=== PATIENT | female | born 1945 | race African-American/Black ===

== ENCOUNTER → 2016-06-30 | Outpatient (CLI) | payer MEDICARE, OTHER ==
[2014-08-28 21:30] VITALS: BP 115/63
[~2016-06-30] MED LIST: LISI1TAB3 PO
--- NOTE | 2016-06-30 15:16 | KCIC ---
PROCEDURE Thyroid sonogram. HISTORY Thyroid nodule. TECHNIQUE Sonographic imaging of the thyroid was performed. COMPARISON None. FINDINGS The right thyroid lobe measures 4.1 x 1.4 x 1.6 cm. The left thyroid lobe measures 3.9 x 0.9 x 0.9 cm. There is a complex predominately isoechoic nodule with small cystic component and increased vascularity within the right thyroid lobe measuring 2.4 x 1.3 x 1.3 cm. No additional thyroid lesion is seen. IMPRESSION 2.4 cm hypervascular right thyroid nodule. Sonographic guided fine-needle aspiration can be performed for definitive diagnosis. Electronically signed by: Juanita Curry (Jun 30, 2016 15:15:34)
== END | disposition home or self-care (01) ==
LOC: KCIC US 14:52
PROVIDERS: ATTEND Chiropractor
DX: E04.1 Nontoxic single thyroid nodule (principal)
CPT/HCPCS: 76536

== ENCOUNTER 2018-03-16 22:35 | Observation (INO) | payer MEDICARE, OTHER ==
[~2018-03-16] VITALS: Ht 162.6 cm; Wt 62.1 kg
[2018-03-16] MEDS ORDERED: IPRATRPIUM/ALBUTEROL 0.5/2.5MG 3 ML NEBU. NEB ONE (23:00)
[2018-03-16 23:08] LABS: BASO # 0.1 x10^3/uL (0.0-0.2); BASO % 1 % (0-3); EOS # 0.4 x10^3/uL (0.0-0.7); EOS % 5 % (0-3); HEMATOCRIT 37.2 % (36.0-47.0); HEMOGLOBIN 12.9 g/dL (12.0-15.5); LYMPH # 2.9 x10^3/uL (1.0-4.8); LYMPH % 36 % (24-48); MEAN CORPUSCULAR HEMOGLOBIN 31 pg (25-35); MEAN CORPUSCULAR HGB CONC 35 g/dL (31-37); MEAN CORPUSCULAR VOLUME 89 fL (79-100); MONO # 0.5 x10^3/uL (0.0-1.1); MONO % 6 % (0-9); NEUT # 4.3 x10^3uL (1.8-7.7); NEUT % 53 % (31-73); PLATELET COUNT 192 x10^3/uL (140-400); RED BLOOD COUNT 4.18 x10^6/uL (3.50-5.40); WHITE BLOOD COUNT 8.2 x10^3/uL (4.0-11.0)
[2018-03-16 23:27] LABS: CALCIUM 9.6 mg/dL (8.5-10.1); CREATININE 1.1 mg/dL (0.6-1.0); GFR 59.2; POTASSIUM 3.3 mmol/L (3.5-5.1)
[2018-03-16] MEDS ORDERED: fentaNYL PF VIAL 100 MCG/2 ML VIAL IV ONE (23:30)
[2018-03-16] MEDS ORDERED: ONDANSETRON PF 4 MG/2 ML VIAL. IV ONE (23:30)
[2018-03-16 23:32] LABS: ALBUMIN 3.9 g/dL (3.4-5.0); TOTAL BILIRUBIN 0.5 mg/dL (0.2-1.0); TOTAL PROTEIN 7.9 g/dL (6.4-8.2)
[2018-03-16] MEDS ORDERED: FAMOTIDINE 20 MG/2 ML VIAL IVP ONE (23:45)
[2018-03-17] MEDS ORDERED: fentaNYL PF VIAL 100 MCG/2 ML VIAL IV ONE
[2018-03-17] MEDS ORDERED: MORPHINE SULFATE 4 MG/ML VIAL. IV ONE (00:30)
[2018-03-17 00:31] LABS: BILIRUBIN,URINE NEGATIVE (NEG); CLARITY,URINE CLEAR; COLOR,URINE YELLOW; NITRITE,URINE NEGATIVE (NEG); PROTEIN,URINE NEGATIVE (NEG-TRACE)
--- NOTE | 2018-03-17 00:32 | RAD ---
Ultrasound the abdomen limited. HISTORY: Right upper quadrant pain Ultrasound was used to evaluate the liver, gallbladder and right upper quadrant. The pancreas was incompletely evaluated.. Pancreatic duct is mildly prominent measuring 3 mm. The IVC at the liver was normal. Liver was within normal limits in size and appearance. Common duct was normal measuring 4 mm. Gallbladder was contracted, gallstones were not definitely identified. Right kidney is 9.1 cm in length without hydronephrosis. IMPRESSION: 1. Limited evaluation of pancreas. 2. Pancreatic duct in the mid pancreas appeared prominent, CT or MRI could be of benefit. 3. No liver lesion noted. 4. Contracted gallbladder without gallstones. Electronically signed by: Goldy Shukla MD (03/17/2018 12:28 AM) [facility]
[2018-03-17] MEDS ORDERED: CONTRAST GIVEN. MC PRN (00:45)
[2018-03-17 00:53] LABS: BACTERIA,URINE FEW /HPF (0-FEW); SQUAMOUS EPITHELIAL CELL,UR FEW /LPF
[2018-03-17] MEDS ORDERED: IOHEXOL 300 MG/ML 100ML VIAL. IV ONE ×2 (01:00→03:30)
--- NOTE | 2018-03-17 01:20 | RAD ---
CT abdomen and pelvis with contrast. HISTORY: Right upper quadrant epigastric pain. CT scan of the abdomen and pelvis was done using 60 mL Omnipaque 300 contrast. Lung bases are clear. There is no effusion. Liver is normal in appearance. Gallbladder is contracted. There is no calcified gallstone. Spleen and adrenal glands are normal. A pancreatic lesion is not identified. Pancreatic duct upper normal in size. There is no mass or hydronephrosis in the kidneys. There is no adenopathy or ascites. Appendix is normal on the right side of the pelvis. Uterus and ovaries are normal. There is no bowel obstruction or ascites. There is mild degenerative change in the lumbar spine. IMPRESSION: 1. Contracted gallbladder without definite gallstones. 2. Common duct within normal limits. 3. Pancreatic duct upper normal or slightly prominent but without a definite pancreatic mass. 4. Normal appendix. 5. No abdominal or pelvic mass or other acute finding. RS Compliance Statement: One or more of the following individualized dose reduction techniques were utilized for this examination: 1. Automated exposure control 2. Adjustment of the mA and/or kV according to patient size 3. Use of iterative reconstruction technique Electronically signed by: Goldy Shukla MD (03/17/2018 1:16 AM) [facility]
--- NOTE | 2018-03-17 01:43 | RAD ---
AP chest. HISTORY: Short of air, chest pain AP view was taken of the chest. There is a possible pulmonary nodule on the right. Follow-up PA and lateral views would be of benefit. Heart is normal in size. There is no pleural effusion. There is mild apical scarring. IMPRESSION: 1. Possible pulmonary nodule on the right, follow-up recommended. 2. No acute infiltrates. Electronically signed by: Goldy Shukla MD (03/17/2018 1:38 AM) [facility]
[2018-03-17] MEDS ORDERED: LIDO:MAALOX 1:1 20 ML SINGLE DOSE. SWSW ONE (01:45)
[2018-03-17] MEDS ORDERED: IV NORMAL SALINE 1000ML BAG 1,000 ML IV ONE (02:00)
--- NOTE | 2018-03-17 03:07 | RAD ---
CT arteriogram of the chest. HISTORY: Chest pain through to back CT arteriogram of the chest was done using 60 mL Omnipaque 300 contrast. Sagittal and coronal MIP images were reconstructed. Pre and postcontrast images were reviewed reconstructed. There is no intramural hematoma at the aortic arch. Postcontrast images show the thyroid is homogeneous. There is no mediastinal adenopathy. There is no pleural effusion. 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 There is no aortic dissection. There is mild atelectasis in the medial left lung. There is no aortic aneurysm. There is mild biapical scarring. There is a granuloma in the right lung. There is a small focus of the atelectasis or infiltrate in the superior segment of the right lower lobe. This study is negative for evidence of a pulmonary embolus. CT abdomen was reviewed. There is atherosclerotic change in the aorta without an aortic aneurysm or dissection. IMPRESSION: 1. No thoracic aortic aneurysm or dissection. 2. Aberrant right subclavian 3. Mild focal atelectasis or infiltrate superior segment right lower lobe. 4. Mild biapical scarring. 5. Negative for a pulmonary embolus. Electronically signed by: Goldy Shukla MD (03/17/2018 3:03 AM) [facility]
[2018-03-17] MEDS ORDERED: ONDANSETRON PF 4 MG/2 ML VIAL. IV PRN (03:30)
[2018-03-17] MEDS ORDERED: fentaNYL PF VIAL 100 MCG/2 ML VIAL IV PRN (03:30)
[2018-03-17 03:53] VITALS: BP 159/65
[2018-03-17] MEDS: IV NORMAL SALINE 1000ML BAG 1,000 ML IV SCH ×2 (04:00→13:33)
[2018-03-17] MEDS ORDERED: ATOR20TA58 PO (05:14)
--- NOTE | 2018-03-17 06:18 | PHYS DOC ---
Past Medical History Past Medical History: High Cholesterol, Hypertension Past Surgical History: Tonsillectomy, Tubal ligation Alcohol Use: None Drug Use: None Adult General Chief Complaint Chief Complaint: GI PROBLEM HPI HPI Patient is a 72 year old -Bangladeshi female presents with acute onset chest pain described as epigastric radiating to back or shortness of breath starting 2 hours prior to ED arrival. No fever, cough, sore throat. No urinary frequency urgency, hematuria or flank pain. Denies history of CAD, DVT, PE. No history of AAA, no prior abdominal surgeries. No other acute symptoms or complaints. Patient's accompanied at bedside by spouse. [] Review of Systems Review of Systems ROS as per HPI All other systems were reviewed and found to be within normal limits, except as documented in this note. Current Medications Current Medications Current Medications Medications (Trade) Dose Ordered Sig/Grace Start Time Stop Time Status Last Admin Dose Admin Albuterol/ Ipratropium (Duoneb) 3 ml 1X ONCE 03/16/18 23:00 03/16/18 23:00 DC Famotidine (Pepcid Vial) 20 mg 1X ONCE 03/16/18 23:45 03/16/18 23:46 DC 03/16/18 23:42 20 MG Fentanyl Citrate (Fentanyl 2ml Vial) 75 mcg 1X ONCE 03/17/18 00:00 03/17/18 00:01 DC 03/17/18 00:20 75 MCG Info (CONTRAST GIVEN -- Rx MONITORING) 1 each PRN DAILY PRN 03/17/18 00:45 03/19/18 00:44 Iohexol (Omnipaque 300 Mg/ml) 60 ml 1X ONCE 03/17/18 01:00 03/17/18 01:01 DC 03/17/18 01:01 60 ML Morphine Sulfate (Morphine Sulfate) 4 mg 1X ONCE 03/17/18 00:30 03/17/18 00:31 DC Multi-Ingredient Mouthwash/Gargle (Gi Cocktail) 20 ml 1X ONCE 03/17/18 01:45 03/17/18 01:49 DC 03/17/18 01:48 20 ML Ondansetron HCl (Zofran) 4 mg 1X ONCE 03/16/18 23:30 03/16/18 23:31 DC 03/16/18 23:07 4 MG Sodium Chloride 1,000 ml @ 1,000 mls/hr 1X ONCE 03/17/18 02:00 03/17/18 02:59 DC 03/17/18 01:41 1,000 MLS/HR Allergies Allergies Allergies Coded Allergies Type Severity Reaction Last Updated Verified peanut Allergy Intermediate Rash 08/28/14 Yes tree nut Allergy Intermediate Rash 08/28/14 Yes Physical Exam Physical Exam Constitutional: Well developed, well nourished, no acute distress, non-toxic appearance. [] HENT: Normocephalic, atraumatic, bilateral external ears normal, oropharynx moist, no oral exudates, nose normal. [] Eyes: PERRLA, EOMI, conjunctiva normal, no discharge. [] Neck: Normal range of motion, no tenderness, supple, no stridor. [] Cardiovascular:Heart rate regular rhythm, no murmur [] Lungs & Thorax: Bilateral breath sounds clear to auscultation [] Abdomen: Bowel sounds normal, soft. [] Skin: Warm, dry, no erythema. [] Back: No tenderness. [] Extremities: No tenderness, no cyanosis, no clubbing, ROM intact, no edema. [] Neurologic: Alert and oriented X 3, normal motor function, normal sensory function, no focal deficits noted. [] Psychologic: Affect normal, judgement normal, mood normal. [] Current Patient Data Vital Signs Vital Signs Date Time Temp Pulse Resp B/P (MAP) Pulse Ox O2 Delivery O2 Flow Rate FiO2 03/17/18 01:47 71 167/95 (119) 99 Nasal Cannula 2.0 03/17/18 00:20 18 03/16/18 22:37 97.5 97.5 Lab Values Laboratory Tests Test 03/16/18 22:59 03/17/18 00:08 White Blood Count 8.2 x10^3/uL (4.0-11.0) Red Blood Count 4.18 x10^6/uL (3.50-5.40) Hemoglobin 12.9 g/dL (12.0-15.5) Hematocrit 37.2 % (36.0-47.0) Mean Corpuscular Volume 89 fL (79-100) Mean Corpuscular Hemoglobin 31 pg (25-35) Mean Corpuscular Hemoglobin Concent 35 g/dL (31-37) Red Cell Distribution Width 15.0 % (11.5-14.5) H Platelet Count 192 x10^3/uL (140-400) Neutrophils (%) (Auto) 53 % (31-73) Lymphocytes (%) (Auto) 36 % (24-48) Monocytes (%) (Auto) 6 % (0-9) Eosinophils (%) (Auto) 5 % (0-3) H Basophils (%) (Auto) 1 % (0-3) Neutrophils # (Auto) 4.3 x10^3uL (1.8-7.7) Lymphocytes # (Auto) 2.9 x10^3/uL (1.0-4.8) Monocytes # (Auto) 0.5 x10^3/uL (0.0-1.1) Eosinophils # (Auto) 0.4 x10^3/uL (0.0-0.7) Basophils # (Auto) 0.1 x10^3/uL (0.0-0.2) D-Dimer (Ruth) 1.31 ug/mlFEU (0.00-0.50) H Sodium Level 146 mmol/L (136-145) H Potassium Level 3.3 mmol/L (3.5-5.1) L Chloride Level 106 mmol/L (98-107) Carbon Dioxide Level 31 mmol/L (21-32) Anion Gap 9 (6-14) Blood Urea Nitrogen 15 mg/dL (7-20) Creatinine 1.1 mg/dL (0.6-1.0) H Estimated GFR (Cockcroft-Gault) 59.2 BUN/Creatinine Ratio 14 (6-20) Glucose Level 101 mg/dL (70-99) H Calcium Level 9.6 mg/dL (8.5-10.1) Total Bilirubin 0.5 mg/dL (0.2-1.0) Aspartate Amino Transferase (AST) 20 U/L (15-37) Alanine Aminotransferase (ALT) 19 U/L (14-59) Alkaline Phosphatase 75 U/L (46-116) Troponin I Quantitative 0.021 ng/mL (0.000-0.055) FN-Nbl-R-Type Natriuretic Peptide 196 pg/mL (0-124) H Total Protein 7.9 g/dL (6.4-8.2) Albumin 3.9 g/dL (3.4-5.0) Albumin/Globulin Ratio 1.0 (1.0-1.7) Lipase 300 U/L (73-393) Urine Collection Type Unknown Urine Color Yellow Urine Clarity Clear Urine pH 7.0 Urine Specific [place] 1.010 Urine Protein Negative mg/dL (NEG-TRACE) Urine Glucose (UA) Negative mg/dL (NEG) Urine Ketones (Stick) Negative mg/dL (NEG) Urine Blood Negative (NEG) Urine Nitrite Negative (NEG) Urine Bilirubin Negative (NEG) Urine Urobilinogen Dipstick 1.0 mg/dL (0.2 mg/dL) Urine Leukocyte Esterase Trace (NEG) Urine RBC 1-2 /HPF (0-2) Urine WBC 1-4 /HPF (0-4) Urine Squamous Epithelial Cells Few /LPF Urine Bacteria Few /HPF (0-FEW) Laboratory Tests 03/16/18 22:59 Laboratory Tests 03/16/18 22:59 EKG EKG [EKG: Reviewed] Radiology/Procedures Radiology/Procedures [XR chest: NAD CT A chest/abdomen/pelvis: No acute symptoms] Course & Med Decision Making Course & Med Decision Making Pertinent Labs and Imaging studies reviewed. (See chart for details) [Atypical chest pain, disproportionate to exam. CT angiogram chest abdomen and pelvis nonacute. Lab work likewise nondiagnostic. Patient require repeat doses of narcotic pain medications while in the emergency department. Will admit to the hospitalist service for further evaluation of chest pain.] Dragon Disclaimer Dragon Disclaimer This electronic medical record was generated, in whole or in part, using a voice recognition dictation system. Departure Departure Impression: Primary Impression: Chest pain Disposition: ADMITTED INPATIENT Condition: IMPROVED ATTILA CONNELL DO Mar 17, 2018 06:18
--- NOTE | 2018-03-17 06:21 | NUR ---
Patient admitted to room 262 from ER accompanied by ER nurse. Patient walked to bed from cart with steady gait. Monitor on with NSR noted. VSS. RA. c/o 5/10 mid, upper gastric sharp abd pain at 5/10 on scale. Patient is refusing pain medication at this time. Call light is within reach. Will monitor.
--- NOTE | 2018-03-17 06:57 | EKG ---
[facility] [address] [place] [address] Test Date: 2018-03-16 Test Time: 22:45:19 Pat Name: IZABELLA VIERA Department: Room: 262 1 Gender: F Potato Bucker: : 1945 Requested By: TANESHA AWAD Order Number: [id number] Reading MD: Mir Boland Measurements Intervals [place] Rate: 79 P: -1 SD: 124 QRS: 75 QRSD: 70 T: 48 QT: 410 QTc: 476 Interpretive Statements SINUS RHYTHM T ABNORMALITY IN INFERIOR LEADS PROLONGED QT ABNORMAL ECG Electronically Signed On 03-23-2018 9:21:23 FAMILY SUPPORT WORKER by Mir Boland
[2018-03-17 07:00] VITALS: BP 115/70
[2018-03-17] MEDS ORDERED: ACETAMINOPHEN 325 MG TABLET. PO PRN (09:00)
[2018-03-17] MEDS ORDERED: ELECTROLYTE (NON-ICU) PROTOCOL MC PRN (09:00)
[2018-03-17] MEDS ORDERED: PROCHLORPERAZINE 10 MG/2 ML VIAL. IV PRN (09:00)
[2018-03-17] MEDS ORDERED: HYDROcodone/APAP 5/325MG 1 TAB TABLET PO PRN (09:00)
[2018-03-17] MEDS ORDERED: ASPIRIN CHEWABLE 81 MG TABLET. PO ONE (09:00)
[2018-03-17] MEDS ORDERED: MAGNESIUM HYDROXIDE 2,400 MG/30 ML ORAL.SUSP. PO PRN (09:00)
[2018-03-17] MEDS ORDERED: MAG HYDROX/ALUMINUM HYD/SIMETH 30 ML ORAL.SUSP PO PRN (09:00)
[2018-03-17] MEDS ORDERED: POTASSIUM CHLORIDE 20 MEQ TABLET.ER. PO ONE (09:00)
--- NOTE | 2018-03-17 09:24 | PDOC2 ---
SHARI ANDREA ENGINE INSTALLER 03/17/18 0924: CARDIAC CONSULT DATE OF CONSULT Date of Consult DATE: 03/17/18 TIME: 09:13 REASON FOR CONSULT Reason for Consult: Chest pain REFERRING PHYSICIAN Referring Physician: Blanco SOURCE Source: Chart review, Patient HISTORY OF PRESENT ILLNESS HISTORY OF PRESENT ILLNESS This is a pleasant 72 yo female admitted for complains of epigastric pain more so than chest pain. Reports that she does 1 hour aerobics followed by 10 laps of swimming 3x weekly without difficulty. She does have asthma but this is controlled. Last night she ate corn, bratwurst, and potato then 1.5 hours later she had fullness in her epigastric region that radiated to her mid back. This was uncomfortable and took some tums but no help. She felt a little SOA at that time as she was not able to take a deep breath due to the epigastric discomfort. Reports no nausea no heartburn. Denies any palpitations or diaphoresis. She has not had any chest pain in the last several weeks and no changes to her activity tolerance. No prior hx of VTE, CAD, arrhythmias. No falls, injury or MVA. Denies any PUD and does not take any routine medications for GERD. Presently she has not further discomfort. PAST MEDICAL HISTORY Cardiovascular: HTN, Hyperlipidemia Pulmonary: Asthma CENTRAL NERVOUS SYSTEM: Other (No pertinent history) GI: No pertinent hx Heme/Onc: No pertinent hx Hepatobiliary: No pertinent hx Psych: No pertinent hx Musculoskeletal: Osteoarthritis Rheumatologic: No pertinent hx Infectious disease: No pertinent hx ENT: No pertinent hx Renal/: No pertinent hx Endocrine: No pertinent hx Dermatology: No pertinent hx PAST SURGICAL HISTORY Past Surgical History: Arthroscopy (right knee), Tubal Ligation, Tonsillectomy , Other (right knee surgery) FAMILY HISTORY Family History: Stroke (brother) SOCIAL HISTORY Smoke: Quit (remotely) ALCOHOL: occassional Drugs: Marijuana Lives: with Family (spouse) CURRENT MEDICATIONS CURRENT MEDICATIONS Current Medications Medications (Trade) Dose Ordered Sig/Grace Route PRN Reason Start Time Stop Time Status Last Admin Dose Admin Fentanyl Citrate (Fentanyl 2ml Vial) 50 mcg 1X ONCE IV 03/16/18 23:30 03/16/18 23:31 DC 03/16/18 23:11 Ondansetron HCl (Zofran) 4 mg 1X ONCE IV 03/16/18 23:30 03/16/18 23:31 DC 03/16/18 23:07 Famotidine (Pepcid Vial) 20 mg 1X ONCE IVP 03/16/18 23:45 03/16/18 23:46 DC 03/16/18 23:42 Fentanyl Citrate (Fentanyl 2ml Vial) 75 mcg 1X ONCE IV 03/17/18 00:00 03/17/18 00:01 DC 03/17/18 00:20 Iohexol (Omnipaque 300 Mg/ml) 60 ml 1X ONCE IV 03/17/18 01:00 03/17/18 01:01 DC 03/17/18 01:01 Sodium Chloride 1,000 ml @ 1,000 mls/hr 1X ONCE IV 03/17/18 02:00 03/17/18 02:59 DC 03/17/18 01:41 Multi-Ingredient Mouthwash/Gargle (Gi Cocktail) 20 ml 1X ONCE SWSW 03/17/18 01:45 03/17/18 01:49 DC 03/17/18 01:48 Sodium Chloride 1,000 ml @ 100 mls/hr Q10H IV 03/17/18 04:00 03/17/18 04:00 ALLERGIES ALLERGIES: Coded Allergies: peanut (Verified Allergy, Intermediate, Rash, 08/28/14) tree nut (Verified Allergy, Intermediate, Rash, 08/28/14) ROS Review of System 14 point ROS evaluated with pertinent positives noted per HPI PHYSICAL EXAM General: Alert, Oriented X3, Cooperative, No acute distress HEENT: Atraumatic, Mucous membr. moist/pink Lungs: Clear to auscultation, Normal air movement Heart: Regular rate (SR no rhythm ectopies) Abdomen: Soft, No tenderness Extremities: No cyanosis, No edema Skin: No breakdown, No significant lesion Neuro: Normal speech, Sensation intact Psych/Mental Status: Mental status NL, Mood NL MUSCULOSKELETAL: Osteoarthritic changes both hands VITALS VITALS Vital Signs Date Time Temp Pulse Resp B/P (MAP) Pulse Ox O2 Delivery O2 Flow Rate FiO2 03/17/18 07:00 98.4 70 18 115/70 (85) 98 Room Air 98.4 03/17/18 03:17 2.0 LABS Lab: Laboratory Tests Test 03/16/18 22:59 03/17/18 00:08 03/17/18 06:20 White Blood Count 8.2 x10^3/uL (4.0-11.0) Red Blood Count 4.18 x10^6/uL (3.50-5.40) Hemoglobin 12.9 g/dL (12.0-15.5) Hematocrit 37.2 % (36.0-47.0) Mean Corpuscular Volume 89 fL (79-100) Mean Corpuscular Hemoglobin 31 pg (25-35) Mean Corpuscular Hemoglobin Concent 35 g/dL (31-37) Red Cell Distribution Width 15.0 % (11.5-14.5) Platelet Count 192 x10^3/uL (140-400) Neutrophils (%) (Auto) 53 % (31-73) Lymphocytes (%) (Auto) 36 % (24-48) Monocytes (%) (Auto) 6 % (0-9) Eosinophils (%) (Auto) 5 % (0-3) Basophils (%) (Auto) 1 % (0-3) Neutrophils # (Auto) 4.3 x10^3uL (1.8-7.7) Lymphocytes # (Auto) 2.9 x10^3/uL (1.0-4.8) Monocytes # (Auto) 0.5 x10^3/uL (0.0-1.1) Eosinophils # (Auto) 0.4 x10^3/uL (0.0-0.7) Basophils # (Auto) 0.1 x10^3/uL (0.0-0.2) D-Dimer (Ruth) 1.31 ug/mlFEU (0.00-0.50) Sodium Level 146 mmol/L (136-145) Potassium Level 3.3 mmol/L (3.5-5.1) Chloride Level 106 mmol/L (98-107) Carbon Dioxide Level 31 mmol/L (21-32) Anion Gap 9 (6-14) Blood Urea Nitrogen 15 mg/dL (7-20) Creatinine 1.1 mg/dL (0.6-1.0) Estimated GFR (Cockcroft-Gault) 59.2 BUN/Creatinine Ratio 14 (6-20) Glucose Level 101 mg/dL (70-99) Calcium Level 9.6 mg/dL (8.5-10.1) Total Bilirubin 0.5 mg/dL (0.2-1.0) Aspartate Amino Transf (AST/SGOT) 20 U/L (15-37) Alanine Aminotransferase (ALT/SGPT) 19 U/L (14-59) Alkaline Phosphatase 75 U/L (46-116) Troponin I Quantitative 0.021 ng/mL (0.000-0.055) 0.028 ng/mL (0.000-0.055) BR-[id number]-[id number]-Type Natriuretic Peptide 196 pg/mL (0-124) Total Protein 7.9 g/dL (6.4-8.2) Albumin 3.9 g/dL (3.4-5.0) Albumin/Globulin Ratio 1.0 (1.0-1.7) Lipase 300 U/L (73-393) Urine Collection Type Unknown Urine Color Yellow Urine Clarity Clear Urine pH 7.0 Urine Specific [place] 1.010 Urine Protein Negative mg/dL (NEG-TRACE) Urine Glucose (UA) Negative mg/dL (NEG) Urine Ketones (Stick) Negative mg/dL (NEG) Urine Blood Negative (NEG) Urine Nitrite Negative (NEG) Urine Bilirubin Negative (NEG) Urine Urobilinogen Dipstick 1.0 mg/dL (0.2 mg/dL) Urine Leukocyte Esterase Trace (NEG) Urine RBC 1-2 /HPF (0-2) Urine WBC 1-4 /HPF (0-4) Urine Squamous Epithelial Cells Few /LPF Urine Bacteria Few /HPF (0-FEW) ASSESSMENT/PLAN ASSESSMENT/PLAN 1. Atypical Chest pain: more on epigastric region. Suspect dyspepsia, doubt ACS 2. HTN: labile episodes 3. HLP 4. Hypokalemia 5. Marijuana use 6. Hx of asthma: controlled Recommendations TTE, lipids, repeat EKG Restart BP meds. Replace K. Potential DC this afternoon Start on PPI. Discouraged marijuana use REYNA BAGN MD 03/17/187: SHARI ANDREA APRN Mar 17, 2018 09:24 REYNA BANG MD Mar 17, 2018 19:27
[2018-03-17] MEDS ORDERED: hydroCHLOROthiazide 12.5 MG CAPSULE PO SCH (09:30)
[2018-03-17] MEDS ORDERED: LISINOPRIL 10 MG TABLET PO SCH (09:30)
[2018-03-17] MEDS ORDERED: ASPIRIN ENTERIC COATED 81 MG TABLET.DR. PO SCH (09:30)
[2018-03-17 09:36] LABS: CALCIUM 8.7 mg/dL (8.5-10.1); GFR 66.1; MAGNESIUM 1.7 mg/dL (1.8-2.4); POTASSIUM 3.8 mmol/L (3.5-5.1)
[2018-03-17] MEDS ORDERED: PANTOPRAZOLE 40 MG TABLET.DR. PO SCH (10:15)
[2018-03-17 11:00] VITALS: BP 154/63
[2018-03-17] MEDS ORDERED: MAGNESIUM SULFATE 2GM 50 ML IV ONE (11:00)
--- NOTE | 2018-03-17 11:20 | EKG ---
[facility] [address] [place] [address] Test Date: 2018-03-17 Test Time: 11:14:45 Pat Name: IZABELLA VIERA Department: Room: 262 1 Gender: F Corporate Representative: [facility] : 1945 Requested By: SHARI ANDREA Order Number: [id number] Reading MD: Mir Boland Measurements Intervals [place] Rate: 59 P: 63 ND: 184 QRS: 82 QRSD: 66 T: 71 QT: 434 QTc: 430 Interpretive Statements SINUS RHYTHM n Electronically Signed On 03-23-2018 9:23:06 SECONDARY ENGLISH TEACHER by Mir Boland
--- NOTE | 2018-03-17 11:44 | PDOC1 ---
History and Physical Date of Admission Date of Admission DATE: 03/17/18 TIME: 11:37 Identification/Chief Complaint Chief Complaint chest pain Source Source: Patient History of Present Illness History of Present Illness 72 yo female admitted for complains of epigastric pain that started yesterday 1 hr after eating. patient active and swims 3x/week Last night she ate corn, bratwurst, and potato then 1.5 hours later she had fullness in her epigastric region that radiated to her mid back. patient patient also endorsed SOB on inspiration. no hx of GERD or PUD . Patient Denies any palpitations or diaphoresis. No prior hx of VTE, CAD, arrhythmias. no mechanical fall . patient admitted for ACS rule out Past Medical History Cardiovascular: HTN, Hyperlipidemia Pulmonary: Asthma CENTRAL NERVOUS SYSTEM: Other (No pertinent history) GI: No pertinent hx Heme/Onc: No pertinent hx Hepatobiliary: No pertinent hx Psych: No pertinent hx Musculoskeletal: Osteoarthritis Rheumatologic: No pertinent hx Infectious disease: No pertinent hx ENT: No pertinent hx Renal/: No pertinent hx Endocrine: No pertinent hx Dermatology: No pertinent hx Past Surgical History Past Surgical History: Arthroscopy (right knee), Tubal Ligation, Tonsillectomy , Other (right knee surgery) Family History Family History: Stroke (brother) Social History Smoke: Quit (remotely) ALCOHOL: occassional Drugs: Marijuana Current Problem List Problem List Problems Medical Problems: (1) Chest pain Status: Acute Current Medications Current Medications Current Medications Albuterol/ Ipratropium (Duoneb) 3 ml 1X ONCE NEB ; Start 03/16/18 at 23:00; Stop 03/16/18 at 23:00; Status DC Fentanyl Citrate (Fentanyl 2ml Vial) 50 mcg 1X ONCE IV Last administered on 03/16/18at 23:11; Start 03/16/18 at 23:30; Stop 03/16/18 at 23:31; Status DC Ondansetron HCl (Zofran) 4 mg 1X ONCE IV Last administered on 03/16/18at 23:07; Start 03/16/18 at 23:30; Stop 03/16/18 at 23:31; Status DC Famotidine (Pepcid Vial) 20 mg 1X ONCE IVP Last administered on 03/16/18at 23:42 ; Start 03/16/18 at 23:45; Stop 03/16/18 at 23:46; Status DC Fentanyl Citrate (Fentanyl 2ml Vial) 75 mcg 1X ONCE IV Last administered on 03/17/18at 00:20; Start 03/17/18 at 00:00; Stop 03/17/18 at 00:01; Status DC Morphine Sulfate (Morphine Sulfate) 4 mg 1X ONCE IV ; Start 03/17/18 at 00:30; Stop 03/17/18 at 00:31; Status DC Iohexol (Omnipaque 300 Mg/ml) 60 ml 1X ONCE IV Last administered on 03/17/18at 01:01; Start 03/17/18 at 01:00; Stop 03/17/18 at 01:01; Status DC Info (CONTRAST GIVEN -- Rx MONITORING) 1 each PRN DAILY PRN MC SEE COMMENTS; Start 03/17/18 at 00:45; Stop 03/19/18 at 00:44 Sodium Chloride 1,000 ml @ 1,000 mls/hr 1X ONCE IV Last administered on at 01:41; Start 03/17/18 at 02:00; Stop 03/17/18 at 02:59; Status DC Multi-Ingredient Mouthwash/Gargle (Gi Cocktail) 20 ml 1X ONCE SWSW Last administered on 03/17/18at 01:48; Start 03/17/18 at 01:45; Stop 03/17/18 at 01:49; Status DC Iohexol (Omnipaque 300 Mg/ml) 60 ml 1X ONCE IV ; Start 03/17/18 at 03:30; Stop 03/17/18 at 03:31; Status DC Ondansetron HCl (Zofran) 4 mg PRN Q8HRS PRN IV NAUSEA/VOMITING 1ST CHOICE; Start 03/17/18 at 03:30; Stop 03/18/18 at 03:29 Fentanyl Citrate (Fentanyl 2ml Vial) 50 mcg PRN Q2HR PRN IV SEVERE PAIN; Start 03/17/18 at 03:30; Stop 03/18/18 at 03:29 Sodium Chloride 1,000 ml @ 100 mls/hr Q10H IV Last administered on 03/17/18at 04 :00; Start 03/17/18 at 04:00 Prochlorperazine Edisylate (Compazine) 10 mg PRN Q6HRS PRN IV NAUSEA/VOMITING; Start 03/17/18 at 09:00 Al Hydroxide/Mg Hydroxide (Mylanta Plus Xs) 30 ml PRN Q3HRS PRN PO HEARTBURN / GAS; Start 03/17/18 at 09:00 Info (Non-Icu Electrolyte Protocol) 1 ea PRN DAILY PRN MC SEE COMMENTS; Start 03/17/18 at 09:00 Acetaminophen/ Hydrocodone Bitart (Lortab 5/325) 1 tab PRN Q4HRS PRN PO MILD PAIN; Start 03/17/18 at 09:00 Acetaminophen (Tylenol) 650 mg PRN Q6HRS PRN PO Headaches, Temp > 101.5F; Start 03/17/18 at 09:00 Magnesium Hydroxide (Milk Of Magnesia) 2,400 mg PRN Q12HR PRN PO CONSTIPATION; Start 03/17/18 at 09:00 Atorvastatin Calcium (Lipitor) 20 mg QHS PO ; Start 03/17/18 at 21:00 Lisinopril (Prinivil) 10 mg DAILY PO ; Start 03/17/18 at 09:30 Potassium Chloride (Klor-Con) 40 meq 1X ONCE PO ; Start 03/17/18 at 09:00; Stop 03/17/18 at 09:04; Status DC Aspirin (Ecotrin) 81 mg DAILYWBKFT PO ; Start 03/17/18 at 09:30; Stop 03/17/18 at 09:30; Status DC Hydrochlorothiazide (Microzide) 12.5 mg DAILY PO ; Start 03/17/18 at 09:30 Aspirin (Children'S Aspirin) 81 mg 1X ONCE PO ; Start 03/17/18 at 09:00; Stop at 09:08; Status DC Aspirin (Ecotrin) 81 mg DAILYWBKFT PO ; Start 03/18/18 at 08:00 Pantoprazole Sodium (Protonix) 40 mg DAILYAC PO Last administered on 03/17/18at 10:53; Start 03/17/18 at 10:15 Magnesium Sulfate 50 ml @ 25 mls/hr 1X ONCE IV Last administered on 03/17/18at 11:21; Start 03/17/18 at 11:00; Stop 03/17/18 at 12:59 Active Scripts Active Reported Atorvastatin Calcium 20 Mg Tablet 1 Tab PO DAILY Lisinopril-Hctz 10-12.5 Mg Tab (Lisinopril/Hydrochlorothiazide) 1 Each Tablet 1 Tab PO DAILY Allergies Allergies: Coded Allergies: peanut (Verified Allergy, Intermediate, Rash, 08/28/14) tree nut (Verified Allergy, Intermediate, Rash, 08/28/14) ROS Review of System CONSTITUTIONAL: No fever or chills EYES: No recent changes SKIN: No rash or itching CARDIOVASCULAR: No chest pain, syncope, palpitations, or edema RESPIRATORY: No SOB or cough GASTROINTESTINAL: No nausea, vomiting or abdominal pain NEUROLOGICAL: No headaches or weakness ENDOCRINE: No cold or heat intolerance GENITOURINARY: No urgency or frequency of urination MUSCULOSKELETAL: No back pain or joint pain LYMPHATICS: No enlarged lymph nodes PSYCHIATRIC: No anxiety or depression Physical Exam Physical Exam GENERAL: No apparent distress. Alert and oriented. HEENT: Head normocephalic, atraumatic. NECK: Supple LUNGS: Clear to auscultation. HEART: RRR, S1, S2 present, pulses intact ABDOMEN: Soft, positive bowel sounds. EXTREMITIES: No cyanosis or edema. NEUROLOGIC: Normal speech, normal tone PSYCHIATRIC: Normal affect, normal mood. SKIN: No ulceration. Vitals Vitals Vital Signs Date Time Temp Pulse Resp B/P (MAP) Pulse Ox O2 Delivery O2 Flow Rate FiO2 03/17/18 11:00 97.3 63 18 154/63 (93) 98 Room Air 97.3 03/17/18 03:17 2.0 Labs Labs Laboratory Tests Test 03/16/18 22:59 03/17/18 00:08 03/17/18 06:20 03/17/18 09:28 White Blood Count 8.2 x10^3/uL (4.0-11.0) Red Blood Count 4.18 x10^6/uL (3.50-5.40) Hemoglobin 12.9 g/dL (12.0-15.5) Hematocrit 37.2 % (36.0-47.0) Mean Corpuscular Volume 89 fL (79-100) Mean Corpuscular Hemoglobin 31 pg (25-35) Mean Corpuscular Hemoglobin Concent 35 g/dL (31-37) Red Cell Distribution Width 15.0 % (11.5-14.5) Platelet Count 192 x10^3/uL (140-400) Neutrophils (%) (Auto) 53 % (31-73) Lymphocytes (%) (Auto) 36 % (24-48) Monocytes (%) (Auto) 6 % (0-9) Eosinophils (%) (Auto) 5 % (0-3) Basophils (%) (Auto) 1 % (0-3) Neutrophils # (Auto) 4.3 x10^3uL (1.8-7.7) Lymphocytes # (Auto) 2.9 x10^3/uL (1.0-4.8) Monocytes # (Auto) 0.5 x10^3/uL (0.0-1.1) Eosinophils # (Auto) 0.4 x10^3/uL (0.0-0.7) Basophils # (Auto) 0.1 x10^3/uL (0.0-0.2) D-Dimer (Ruth) 1.31 ug/mlFEU (0.00-0.50) Sodium Level 146 mmol/L (136-145) 145 mmol/L (136-145) Potassium Level 3.3 mmol/L (3.5-5.1) 3.8 mmol/L (3.5-5.1) Chloride Level 106 mmol/L (98-107) 108 mmol/L (98-107) Carbon Dioxide Level 31 mmol/L (21-32) 27 mmol/L (21-32) Anion Gap 9 (6-14) 10 (6-14) Blood Urea Nitrogen 15 mg/dL (7-20) 14 mg/dL (7-20) Creatinine 1.1 mg/dL (0.6-1.0) 1.0 mg/dL (0.6-1.0) Estimated GFR (Cockcroft-Gault) 59.2 66.1 BUN/Creatinine Ratio 14 (6-20) Glucose Level 101 mg/dL (70-99) 100 mg/dL (70-99) Calcium Level 9.6 mg/dL (8.5-10.1) 8.7 mg/dL (8.5-10.1) Total Bilirubin 0.5 mg/dL (0.2-1.0) Aspartate Amino Transf (AST/SGOT) 20 U/L (15-37) Alanine Aminotransferase (ALT/SGPT) 19 U/L (14-59) Alkaline Phosphatase 75 U/L (46-116) Troponin I Quantitative 0.021 ng/mL (0.000-0.055) 0.028 ng/mL (0.000-0.055) 0.029 ng/mL (0.000-0.055) GM-Kmv-K-Type Natriuretic Peptide 196 pg/mL (0-124) Total Protein 7.9 g/dL (6.4-8.2) Albumin 3.9 g/dL (3.4-5.0) Albumin/Globulin Ratio 1.0 (1.0-1.7) Lipase 300 U/L (73-393) Urine Collection Type Unknown Urine Color Yellow Urine Clarity Clear Urine pH 7.0 Urine Specific [place] 1.010 Urine Protein Negative mg/dL (NEG-TRACE) Urine Glucose (UA) Negative mg/dL (NEG) Urine Ketones (Stick) Negative mg/dL (NEG) Urine Blood Negative (NEG) Urine Nitrite Negative (NEG) Urine Bilirubin Negative (NEG) Urine Urobilinogen Dipstick 1.0 mg/dL (0.2 mg/dL) Urine Leukocyte Esterase Trace (NEG) Urine RBC 1-2 /HPF (0-2) Urine WBC 1-4 /HPF (0-4) Urine Squamous Epithelial Cells Few /LPF Urine Bacteria Few /HPF (0-FEW) Magnesium Level 1.7 mg/dL (1.8-2.4) Triglycerides Level 51 mg/dL (0-150) Cholesterol Level 135 mg/dL (0-200) LDL Cholesterol, Calculated 58 mg/dL (0-100) VLDL Cholesterol, Calculated 10 mg/dL (0-40) Non-HDL Cholesterol Calculated 68 mg/dL (0-129) HDL Cholesterol 67 mg/dL (40-60) Cholesterol/HDL Ratio 2.0 Laboratory Tests Test 03/16/18 22:59 03/17/18 00:08 03/17/18 06:20 03/17/18 09:28 White Blood Count 8.2 x10^3/uL (4.0-11.0) Red Blood Count 4.18 x10^6/uL (3.50-5.40) Hemoglobin 12.9 g/dL (12.0-15.5) Hematocrit 37.2 % (36.0-47.0) Mean Corpuscular Volume 89 fL (79-100) Mean Corpuscular Hemoglobin 31 pg (25-35) Mean Corpuscular Hemoglobin Concent 35 g/dL (31-37) Red Cell Distribution Width 15.0 % (11.5-14.5) Platelet Count 192 x10^3/uL (140-400) Neutrophils (%) (Auto) 53 % (31-73) Lymphocytes (%) (Auto) 36 % (24-48) Monocytes (%) (Auto) 6 % (0-9) Eosinophils (%) (Auto) 5 % (0-3) Basophils (%) (Auto) 1 % (0-3) Neutrophils # (Auto) 4.3 x10^3uL (1.8-7.7) Lymphocytes # (Auto) 2.9 x10^3/uL (1.0-4.8) Monocytes # (Auto) 0.5 x10^3/uL (0.0-1.1) Eosinophils # (Auto) 0.4 x10^3/uL (0.0-0.7) Basophils # (Auto) 0.1 x10^3/uL (0.0-0.2) D-Dimer (Ruth) 1.31 ug/mlFEU (0.00-0.50) Sodium Level 146 mmol/L (136-145) 145 mmol/L (136-145) Potassium Level 3.3 mmol/L (3.5-5.1) 3.8 mmol/L (3.5-5.1) Chloride Level 106 mmol/L (98-107) 108 mmol/L (98-107) Carbon Dioxide Level 31 mmol/L (21-32) 27 mmol/L (21-32) Anion Gap 9 (6-14) 10 (6-14) Blood Urea Nitrogen 15 mg/dL (7-20) 14 mg/dL (7-20) Creatinine 1.1 mg/dL (0.6-1.0) 1.0 mg/dL (0.6-1.0) Estimated GFR (Cockcroft-Gault) 59.2 66.1 BUN/Creatinine Ratio 14 (6-20) Glucose Level 101 mg/dL (70-99) 100 mg/dL (70-99) Calcium Level 9.6 mg/dL (8.5-10.1) 8.7 mg/dL (8.5-10.1) Total Bilirubin 0.5 mg/dL (0.2-1.0) Aspartate Amino Transf (AST/SGOT) 20 U/L (15-37) Alanine Aminotransferase (ALT/SGPT) 19 U/L (14-59) Alkaline Phosphatase 75 U/L (46-116) Troponin I Quantitative 0.021 ng/mL (0.000-0.055) 0.028 ng/mL (0.000-0.055) 0.029 ng/mL (0.000-0.055) FE-Uom-I-Type Natriuretic Peptide 196 pg/mL (0-124) Total Protein 7.9 g/dL (6.4-8.2) Albumin 3.9 g/dL (3.4-5.0) Albumin/Globulin Ratio 1.0 (1.0-1.7) Lipase 300 U/L (73-393) Urine Collection Type Unknown Urine Color Yellow Urine Clarity Clear Urine pH 7.0 Urine Specific [place] 1.010 Urine Protein Negative mg/dL (NEG-TRACE) Urine Glucose (UA) Negative mg/dL (NEG) Urine Ketones (Stick) Negative mg/dL (NEG) Urine Blood Negative (NEG) Urine Nitrite Negative (NEG) Urine Bilirubin Negative (NEG) Urine Urobilinogen Dipstick 1.0 mg/dL (0.2 mg/dL) Urine Leukocyte Esterase Trace (NEG) Urine RBC 1-2 /HPF (0-2) Urine WBC 1-4 /HPF (0-4) Urine Squamous Epithelial Cells Few /LPF Urine Bacteria Few /HPF (0-FEW) Magnesium Level 1.7 mg/dL (1.8-2.4) Triglycerides Level 51 mg/dL (0-150) Cholesterol Level 135 mg/dL (0-200) LDL Cholesterol, Calculated 58 mg/dL (0-100) VLDL Cholesterol, Calculated 10 mg/dL (0-40) Non-HDL Cholesterol Calculated 68 mg/dL (0-129) HDL Cholesterol 67 mg/dL (40-60) Cholesterol/HDL Ratio 2.0 VTE Prophylaxis Ordered VTE Prophylaxis Devices: No VTE Pharmacological Prophylaxi: No Assessment/Plan Assessment/Plan ASSESSMENT 1. Atypical Chest pain: more on epigastric region. Suspect dyspepsia, doubt ACS 2. HTN: 3. HLP 4. Hypokalemia 5. Marijuana use 6. Hx of asthma: controlled Plan: TTE pending ASA given Restarted BP meds. Replaced K. start oral PPI. dc on protonix Discouraged marijuana use dc today if tte GAGAN Edmonds MD Mar 17, 2018 11:44
--- NOTE | 2018-03-17 14:07 | NUR ---
SS following for discharge planning. SS reviewed pt's chart. Pt is from home with spouse and is currently on room air. No PT/OT evaluations at this time and no discharge needs noted. SS will continue to follow for pending discharge needs.
[2018-03-17 15:00] VITALS: BP 147/75
--- NOTE | 2018-03-17 15:39 | CARD ---
MR#: [id number] Date of Study: 03/17/2018 Ordering Physician: SHARI ANDREA, Referring Physician: TANESHA AWAD Tech: Alayna Cisse GEOVANY APPROVED REPORT EXAM: Two-dimensional and M-mode echocardiogram with Doppler and color Doppler. Other Information Quality : Good INDICATION Chest Pain 2D DIMENSIONS RVDd2.5 (2.9-3.5cm)Left Atrium(2D)3.2 (1.6-4.0cm) IVSd0.7 (0.7-1.1cm)Aortic Root(2D)2.8 (2.0-3.7cm) LVDd4.1 (3.9-5.9cm)LVOT Diameter2.0 (1.8-2.4cm) PWd0.8 (0.7-1.1cm)LVDs2.2 (2.5-4.0cm) FS (%) 30.0 %SV56.6 ml LVEF(%)60.0 (>50%) Aortic Valve AoV Peak Fredi.158.5cm/sAoV VTI33.4cm AO Peak GR.10.1mmHgLVOT Peak Fredi.112.0cm/s AO Mean GR.5mmHgAVA (VMAX)2.18cm2 EMILEE (VTI)2.40cm2 Mitral Valve MV E Meqvmktt269.2cm/sMV DECEL RHXO338gk MV A Slqelbtl52.6cm/sE/A Ratio1.3 Tricuspid Valve TR P. Ouzpvnhv787wu/sRAP [id number] TR Peak Gr.55vwDwTNIR31faEt Pulmonary Vein S1 Yrevzooq12.5cm/sD2 Kiqgzhxv43.9cm/s LEFT VENTRICLE The left ventricle is normal size. There is normal left ventricular wall thickness. The left ventricu lar systolic function is normal. The Ejection Fraction is 60-65%. There is normal LV segmental wall m otion. RIGHT VENTRICLE The right ventricle is normal size. The right ventricular systolic function is normal. ATRIA The left atrium size is normal. The right atrium size is normal. The interatrial septum is intact wit h no evidence for an atrial septal defect or patent foramen ovale as noted on 2-D or Doppler imaging. AORTIC VALVE The aortic valve is calcified but opens well. Doppler and Color Flow revealed no significant aortic r egurgitation. There is no significant aortic valvular stenosis. MITRAL VALVE The mitral valve is calcified but opens well. There is no evidence of mitral valve prolapse. There is no mitral valve stenosis. Doppler and Color-flow revealed trace to mild mitral regurgitation. TRICUSPID VALVE The tricuspid valve is normal in structure and function. Doppler and Color Flow revealed mild tricusp id regurgitation. There is moderate pulmonary hypertension. The PA pressure was estimated at 46 mmHg. There is no tricuspid valve stenosis. PULMONIC VALVE The pulmonary valve is normal in structure and function. Doppler and Color Flow revealed mild pulmoni c valvular regurgitation. There is no pulmonic valvular stenosis. GREAT VESSELS The aortic root is normal in size. The ascending aorta is normal in size. The IVC is dilated and kathleen apses >50% with inspiration. PERICARDIAL EFFUSION There is no evidence of significant pericardial effusion. Critical Notification Critical Value: No <Conclusion> The left ventricular systolic function is normal. The Ejection Fraction is 60-65%. There is normal LV segmental wall motion. Trace to mild mitral regurgitation. Mild tricuspid regurgitation. There is moderate pulmonary hypertension. The PA pressure was estimated at 46 mmHg. There is no evidence of significant pericardial effusion. Signed by : Mir Boland, Electronically Approved : 03/17/2018 15:37:52
[2018-03-17] MEDS ORDERED: Pantoprazole PO (16:07)
--- NOTE | 2018-03-17 16:13 | PDOC3 ---
Discharge Summary Visit Information Date of Admission: Mar 17, 2018 Date of Discharge: Mar 17, 2018 Final Diagnosis Problems Medical Problems: (1) Chest pain Status: Acute Brief Hospital Course Allergies Allergies Coded Allergies Type Severity Reaction Last Updated Verified peanut Allergy Intermediate Rash 08/28/14 Yes tree nut Allergy Intermediate Rash 08/28/14 Yes Vital Signs Vital Signs Date Time Temp Pulse Resp B/P (MAP) Pulse Ox O2 Delivery O2 Flow Rate FiO2 03/17/18 15:00 97.9 68 18 147/75 (99) 99 Room Air 97.9 03/17/18 03:17 2.0 Lab Results Laboratory Tests Test 03/16/18 22:59 03/17/18 00:08 03/17/18 06:20 03/17/18 09:28 White Blood Count 8.2 x10^3/uL (4.0-11.0) Red Blood Count 4.18 x10^6/uL (3.50-5.40) Hemoglobin 12.9 g/dL (12.0-15.5) Hematocrit 37.2 % (36.0-47.0) Mean Corpuscular Volume 89 fL (79-100) Mean Corpuscular Hemoglobin 31 pg (25-35) Mean Corpuscular Hemoglobin Concent 35 g/dL (31-37) Red Cell Distribution Width 15.0 % (11.5-14.5) Platelet Count 192 x10^3/uL (140-400) Neutrophils (%) (Auto) 53 % (31-73) Lymphocytes (%) (Auto) 36 % (24-48) Monocytes (%) (Auto) 6 % (0-9) Eosinophils (%) (Auto) 5 % (0-3) Basophils (%) (Auto) 1 % (0-3) Neutrophils # (Auto) 4.3 x10^3uL (1.8-7.7) Lymphocytes # (Auto) 2.9 x10^3/uL (1.0-4.8) Monocytes # (Auto) 0.5 x10^3/uL (0.0-1.1) Eosinophils # (Auto) 0.4 x10^3/uL (0.0-0.7) Basophils # (Auto) 0.1 x10^3/uL (0.0-0.2) D-Dimer (Ruth) 1.31 ug/mlFEU (0.00-0.50) Sodium Level 146 mmol/L (136-145) 145 mmol/L (136-145) Potassium Level 3.3 mmol/L (3.5-5.1) 3.8 mmol/L (3.5-5.1) Chloride Level 106 mmol/L (98-107) 108 mmol/L (98-107) Carbon Dioxide Level 31 mmol/L (21-32) 27 mmol/L (21-32) Anion Gap 9 (6-14) 10 (6-14) Blood Urea Nitrogen 15 mg/dL (7-20) 14 mg/dL (7-20) Creatinine 1.1 mg/dL (0.6-1.0) 1.0 mg/dL (0.6-1.0) Estimated GFR (Cockcroft-Gault) 59.2 66.1 BUN/Creatinine Ratio 14 (6-20) Glucose Level 101 mg/dL (70-99) 100 mg/dL (70-99) Calcium Level 9.6 mg/dL (8.5-10.1) 8.7 mg/dL (8.5-10.1) Total Bilirubin 0.5 mg/dL (0.2-1.0) Aspartate Amino Transf (AST/SGOT) 20 U/L (15-37) Alanine Aminotransferase (ALT/SGPT) 19 U/L (14-59) Alkaline Phosphatase 75 U/L (46-116) Troponin I Quantitative 0.021 ng/mL (0.000-0.055) 0.028 ng/mL (0.000-0.055) 0.029 ng/mL (0.000-0.055) ZA-Xvl-T-Type Natriuretic Peptide 196 pg/mL (0-124) Total Protein 7.9 g/dL (6.4-8.2) Albumin 3.9 g/dL (3.4-5.0) Albumin/Globulin Ratio 1.0 (1.0-1.7) Lipase 300 U/L (73-393) Urine Collection Type Unknown Urine Color Yellow Urine Clarity Clear Urine pH 7.0 Urine Specific [place] 1.010 Urine Protein Negative mg/dL (NEG-TRACE) Urine Glucose (UA) Negative mg/dL (NEG) Urine Ketones (Stick) Negative mg/dL (NEG) Urine Blood Negative (NEG) Urine Nitrite Negative (NEG) Urine Bilirubin Negative (NEG) Urine Urobilinogen Dipstick 1.0 mg/dL (0.2 mg/dL) Urine Leukocyte Esterase Trace (NEG) Urine RBC 1-2 /HPF (0-2) Urine WBC 1-4 /HPF (0-4) Urine Squamous Epithelial Cells Few /LPF Urine Bacteria Few /HPF (0-FEW) Magnesium Level 1.7 mg/dL (1.8-2.4) Triglycerides Level 51 mg/dL (0-150) Cholesterol Level 135 mg/dL (0-200) LDL Cholesterol, Calculated 58 mg/dL (0-100) VLDL Cholesterol, Calculated 10 mg/dL (0-40) Non-HDL Cholesterol Calculated 68 mg/dL (0-129) HDL Cholesterol 67 mg/dL (40-60) Cholesterol/HDL Ratio 2.0 Laboratory Tests Test 03/16/18 22:59 03/17/18 00:08 03/17/18 06:20 03/17/18 09:28 White Blood Count 8.2 x10^3/uL (4.0-11.0) Red Blood Count 4.18 x10^6/uL (3.50-5.40) Hemoglobin 12.9 g/dL (12.0-15.5) Hematocrit 37.2 % (36.0-47.0) Mean Corpuscular Volume 89 fL (79-100) Mean Corpuscular Hemoglobin 31 pg (25-35) Mean Corpuscular Hemoglobin Concent 35 g/dL (31-37) Red Cell Distribution Width 15.0 % (11.5-14.5) Platelet Count 192 x10^3/uL (140-400) Neutrophils (%) (Auto) 53 % (31-73) Lymphocytes (%) (Auto) 36 % (24-48) Monocytes (%) (Auto) 6 % (0-9) Eosinophils (%) (Auto) 5 % (0-3) Basophils (%) (Auto) 1 % (0-3) Neutrophils # (Auto) 4.3 x10^3uL (1.8-7.7) Lymphocytes # (Auto) 2.9 x10^3/uL (1.0-4.8) Monocytes # (Auto) 0.5 x10^3/uL (0.0-1.1) Eosinophils # (Auto) 0.4 x10^3/uL (0.0-0.7) Basophils # (Auto) 0.1 x10^3/uL (0.0-0.2) D-Dimer (Ruth) 1.31 ug/mlFEU (0.00-0.50) Sodium Level 146 mmol/L (136-145) 145 mmol/L (136-145) Potassium Level 3.3 mmol/L (3.5-5.1) 3.8 mmol/L (3.5-5.1) Chloride Level 106 mmol/L (98-107) 108 mmol/L (98-107) Carbon Dioxide Level 31 mmol/L (21-32) 27 mmol/L (21-32) Anion Gap 9 (6-14) 10 (6-14) Blood Urea Nitrogen 15 mg/dL (7-20) 14 mg/dL (7-20) Creatinine 1.1 mg/dL (0.6-1.0) 1.0 mg/dL (0.6-1.0) Estimated GFR (Cockcroft-Gault) 59.2 66.1 BUN/Creatinine Ratio 14 (6-20) Glucose Level 101 mg/dL (70-99) 100 mg/dL (70-99) Calcium Level 9.6 mg/dL (8.5-10.1) 8.7 mg/dL (8.5-10.1) Total Bilirubin 0.5 mg/dL (0.2-1.0) Aspartate Amino Transf (AST/SGOT) 20 U/L (15-37) Alanine Aminotransferase (ALT/SGPT) 19 U/L (14-59) Alkaline Phosphatase 75 U/L (46-116) Troponin I Quantitative 0.021 ng/mL (0.000-0.055) 0.028 ng/mL (0.000-0.055) 0.029 ng/mL (0.000-0.055) NW-Kxu-P-Type Natriuretic Peptide 196 pg/mL (0-124) Total Protein 7.9 g/dL (6.4-8.2) Albumin 3.9 g/dL (3.4-5.0) Albumin/Globulin Ratio 1.0 (1.0-1.7) Lipase 300 U/L (73-393) Urine Collection Type Unknown Urine Color Yellow Urine Clarity Clear Urine pH 7.0 Urine Specific [place] 1.010 Urine Protein Negative mg/dL (NEG-TRACE) Urine Glucose (UA) Negative mg/dL (NEG) Urine Ketones (Stick) Negative mg/dL (NEG) Urine Blood Negative (NEG) Urine Nitrite Negative (NEG) Urine Bilirubin Negative (NEG) Urine Urobilinogen Dipstick 1.0 mg/dL (0.2 mg/dL) Urine Leukocyte Esterase Trace (NEG) Urine RBC 1-2 /HPF (0-2) Urine WBC 1-4 /HPF (0-4) Urine Squamous Epithelial Cells Few /LPF Urine Bacteria Few /HPF (0-FEW) Magnesium Level 1.7 mg/dL (1.8-2.4) Triglycerides Level 51 mg/dL (0-150) Cholesterol Level 135 mg/dL (0-200) LDL Cholesterol, Calculated 58 mg/dL (0-100) VLDL Cholesterol, Calculated 10 mg/dL (0-40) Non-HDL Cholesterol Calculated 68 mg/dL (0-129) HDL Cholesterol 67 mg/dL (40-60) Cholesterol/HDL Ratio 2.0 Brief Hospital Course 72 yo female admitted for complains of epigastric pain that started yesterday 1 hr after eating. patient active and swims 3x/week Last night she ate corn, bratwurst, and potato then 1.5 hours later she had fullness in her epigastric region that radiated to her mid back. patient patient also endorsed SOB on inspiration. no hx of GERD or PUD . Patient Denies any palpitations or diaphoresis. No prior hx of VTE, CAD, arrhythmias. no mechanical fall . patient admitted for ACS rule out. patient admitted to a medical floor in stable condition. no events on tele. trops negative suspect Atypical Chest pain likely epigastric region. Suspect dyspepsia, doubt ACS. started on PPI with improvement. patient K was low and replaced. TTE checked and showed preserved Ef without regional wall motion abnormalities. patient counselled on marijuana cessation. patient discharged in stable condition. Discharge Information Condition at Discharge: Stable Disposition/Orders: D/C to Home Scheduled Atorvastatin Calcium (Atorvastatin Calcium) 20 Mg Tablet, 1 TAB PO DAILY for high cholesterol, #30 Ref 5 (Reported) Entered as Reported by: MARIE CROUCH on 03/17/18513 Last Action: Continued on 03/17/18854 by GAGAN MARTINEZ MD Lisinopril/Hydrochlorothiazide (Lisinopril-Hctz 10-12.5 Mg Tab) 1 Each Tablet, 1 TAB PO DAILY, #30 Ref 5 (Reported) Entered as Reported by: JARRETT ARIZMENDI on 08/28/141916 Last Action: Converted on 03/17/18854 by MD JUAN NUÑEZ MANEESH MD Mar 17, 2018 16:13
--- NOTE | 2018-03-17 18:54 | NUR ---
Pt alert and oriented x4 throughout shift. Pt denied chest pain throughout shift. Pt tolerated IV removal. pressure applied, bleeding stopped, bandage applied. Pt given one new script for protonix. Pt educated on atypical chest pain as well as ways to avoid heartburn. Pt and denied questions regarding discharge. Micheal stated to wait for patient to see Dr. Bradley. Dr. Farmer had not come around at 1800. I paged through service and spoke to Dr. Boland who gave the order for patient to discharge. Pt walked out by [employer] to family car.
[2018-03-17] MEDS ORDERED: ATORVASTATIN CALCIUM 20 MG TABLET PO SCH (21:00)
[2018-03-18] MEDS ORDERED: ASPIRIN ENTERIC COATED 81 MG TABLET.DR. PO SCH (08:00)
== END 2018-03-17 19:20 | disposition home or self-care (01) ==
LOC: ER 22:35 → 2 SOUTH 03-17 02:00
PROVIDERS: ADMIT Internal Medicine; ATTEND Internal Medicine
DX: R07.89 Other chest pain (principal); I10 Essential (primary) hypertension; E78.5 Hyperlipidemia, unspecified; J45.909 Unspecified asthma, uncomplicated; E87.6 Hypokalemia; F12.90 Cannabis use, unspecified, uncomplicated; Z82.3 Family history of stroke
CPT/HCPCS: 36415; 71045; 71275; 74177; 76705; 80048; 80053; 80061; 81001; 83690; 83735; 83880; 84484; 85025; 85379; 87086; 93005; 93306; 96365; 96366; 96375; 96376; 99284; G0378; J2405; J3010; J3475; J3490; J7030; Q9967; G0379